=== PATIENT | female | born 2000 | race Two or more races ===

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

== ENCOUNTER 2022-03-17 14:19 | Emergency (ER) | payer OTHER, SELFPAY ==
--- NOTE | ~2022-03-17 | XR_ITS ---
EXAMINATION: XR CHEST CLINICAL INFORMATION: Chest pain. COMPARISON: Chest radiograph dated 06/09/2019. TECHNIQUE: 2 views of the chest were obtained. FINDINGS: No significant abnormality is noted involving the heart, lungs, mediastinum, bony thorax or soft tissues. XR/XR chest 2V IMPRESSION: No acute cardiopulmonary process.
[2022-03-17 14:21] VITALS: BP 151/82; PULSE 77; RESP 19; TEMP 36.6; O2SAT 98; BMI 40.7
--- NOTE | 2022-03-17 14:42 | ED_ITS ---
HPI - General Adult General Chief complaint: General Medical Stated complaint: chest pains Time Seen by Provider: 03/17/22 14:32 Source: patient Mode of arrival: ambulatory Limitations: no limitations History of Present Illness HPI narrative: Patient is a 21 year old female presenting to the emergency department today with upper chest pain. Patient states that she is having upper chest pain that only comes on and gets worse with a deep breath. Patient denies any dizziness, lightheadedness, abdominal pain, nausea, vomiting, fever, chills, blurry vision, double vision, loss of vision, difficulty breathing, shortness of breath, back pain, night sweats, pain with urination, increased urinary frequency, increased urinary urgency, blood in her urine or stool, syncope or a near syncopal episode, recent trauma or falls, bowel incontinence, bladder incontinence, bowel retention, bladder retention, or any other complaints at this time. Onset (ago): day(s) Location: chest Radiation: non-radiation Severity: mild Severity scale (1-10): 3 Quality: dull Pain Consistency: intermittent Relieving factors: none Exacerbating factors: other (inhalation) Associated symptoms: denies other symptoms Treatments prior to arrival: none Related Data Previous Rx's Medication Instructions Recorded penicillin V potassium 500 mg 500 mg PO BID 10 days #20 tabs 05/17/21 tablet omeprazole 20 mg capsule,delayed 20 mg PO DAILY #30 caps 10/31/21 release ondansetron 4 mg disintegrating 4 mg PO Q8H PRN nausea and 10/31/21 tablet vomiting #7 tabs Allergies Allergy/AdvReac Type Severity Reaction Status Date / Time No Known Allergies Allergy Verified 10/31/21 14:53 Review of Systems Constitutional: Constitutional: Reports no additional constitutional complaints, Denies chills, Denies fever(s) and Denies night sweats Eyes: Eyes: Reports no additional eye complaints, Denies blurry vision, Denies change in vision, Denies diplopia, Denies eye discharge, Denies loss of vision and Denies eye pain ENT: Denies dizziness Cardiovascular: Cardiovascular: Reports no additional cardiovascular complaints, Denies chest pain, Denies lightheadedness, Denies Loss of Consciousness and Denies dyspnea Respiratory: Respiratory: Reports no additional respiratory complaints and Denies dyspnea Gastrointestinal: Gastrointestinal: Reports no additional gastrointestinal complaints, Denies abdominal pain, Denies melena, Denies hematochezia, Denies change in bowel habits and Denies change in stool character Genitourinary: Genitourinary: Denies hematuria, Denies urinary frequency, Denies dysuria, Denies urinary incontinence, Denies urinary hesitancy and Denies urinary urgency Musculoskeletal: Musculoskeletal: Reports no additional musculoskeletal complaints, Denies numbness and Denies tingling Neurologic: Denies dizziness, Denies loss of vision, Denies numbness and Denies tingling Psychiatric: Psychiatric: Reports no additional psychiatric complaints Endocrine: Endocrine: Reports no additional endocrine complaints Hematologic/Lymphatic: Hematologic/Lymphatic: Reports no additional hematologic/lymphatic complaints Allergic/Immunologic: Allergic/Immunologic: Reports no additional allergic/immunologic complaints [facility] Past Medical History Attestation statement: The following information was validated with the patient. Medical History Lab test positive for detection of COVID-19 virus Social History Social History Advance Directives: No Advance Directives Information Provided: No Physical Exam ED Vital Signs: Vital Signs - 24 hr 03/17/22 14:21 Temperature 98 F Pulse Rate 77 Respiratory Rate 19 Blood Pressure 151/82 H Pulse Oximetry 98 Oxygen Delivery Method Room Air BMI result Body Mass Index 40.7 Const General: cooperative, no acute distress, alert and awake Nutritional Appearance: well nourished Orientation/consciousness: patient oriented x3 Limitations: no limitations HENMT Head: Yes normal to inspection and Yes atraumatic Ears: hearing grossly normal bilaterally and external ears normal General nose exam: Normal external nose present, no nasal discharge noted and no epistaxis Face and sinus: Yes normal facial exam, No abrasion and No laceration Mouth: Normal oral and palatal mucosa present, no drooling and no muffled voice Eyes General: appearance normal, both eyes and all related structures Periorbital: periorbital findings normal Eyelids: Yes eyelids normal Conjunctivae: conjunctivae normal Pupils: Equal, round and reactive pupils present EOM: EOMs intact bilaterally Neck Neck: Yes normal visual inspection, Yes full ROM and Yes no lymphadenopathy Chest Chest palpation & inspection: normal inspection of the chest Resp Effort & Inspection: normal respiratory effort and able to speak in complete sentences Auscultation: clear to auscultation bilaterally Cardio Rate: regular rate Rhythm: regular rhythm GI Inspection: Yes normal to inspection Neuro General: patient oriented x3 and moves all extremities Cranial nerves: Yes Equal, round and reactive pupils present Cognition (Neuro): normal cognition Motor exam (neuro): 5/5 motor strength present throughout Sensory Exam: Normal double simultaneous stimulation for sensation Coordination: [id number] test normal Extrem General: Yes normal to inspection, Yes full ROM and Yes capillary refill normal Psych Appearance: grossly normal Mental Status: mental status grossly normal Affect: normal affect Attitude: cooperative Thought process: Normal thought process present Thought content: Normal thought content present Insight: Good insight present (Psych) Medical Decision Making MDM Narrative Medical decision making narrative: Patient is a 21 year old female presenting to the emergency department today with chest wall pain. Patient's physical exam was unremarkable. Patient's EKG was unremarkable. Patient's chest x-ray showed no acute process. I explained my physical exam findings as well as all test results to the patient. I answered all questions asked by the patient. Patient received IM toradol which she stated helped her symptoms significantly. I stressed the importance of the patient taking her medication as prescribed. I stressed the importance of the patient following up with her primary care provider. I stressed the importance of the patient returning to the emergency department immediately if her symptoms were to worsen or if she were to develop any dizziness, shortness of breath, difficulty breathing, chest pain, blurry vision, loss of vision, nausea, vomiting, abdominal pain, fever, chills, back pain, or any other complaints. Patient verbalized agreement and understanding with this treatment plan and discharge. Differential Diagnosis Differential Diagnosis: chest wall pain, costochondritis, chest wall pain Medical Records Medical records reviewed: Yes I reviewed the patient's medical records. Lab Data Labs: Lab Results 03/17/22 Range/Units 15:23 Urine Test NEGATIVE (NEGATIVE) Imaging Data Chest x-ray: Attestation: I personally reviewed and interpreted this imaging study as follows: My impression: No acute process. Radiologist's impression: EXAMINATION: XR CHEST CLINICAL INFORMATION: Chest pain. COMPARISON: Chest radiograph dated 06/09/2019. TECHNIQUE: 2 views of the chest were obtained. FINDINGS: No significant abnormality is noted involving the heart, lungs, mediastinum, bony thorax or soft tissues. XR/XR chest 2V IMPRESSION: No acute cardiopulmonary process. Dictated By: Harvey Rao MD Signed By: Electronically signed by Harvey Rao MD 03/17/22 2869 ECG Data Attestation: I personally reviewed and interpreted this ECG as follows: Prior ECG tracings: not available for review Interpretation: Vent rate: 68bpm NH interval: 142ms QRS duration: 78ms QT/QTc-Baz 414/440ms P-R-T axes: 22 31 25 Normal sinus rhythm No previous Discharge Plan Discharge Clinical Impression: Acute costochondritis Patient Disposition: Home, Self-Care Instructions: Costochondritis (ED) Additional Instructions: Follow up with your primary care provider. Return to the emergency department immediately if your symptoms worsen or if you develop any dizziness, shortness of breath, difficulty breathing, chest pain, blurry vision, loss of vision, nausea, vomiting, abdominal pain, fever, chills, back pain, or any other complaints. Prescriptions: No Action omeprazole 20 mg capsule,delayed release(DR/EC) 20 mg PO DAILY Qty: 30 0RF ondansetron 4 mg tablet,disintegrating 4 mg PO Q8H PRN (Reason: nausea and vomiting) Qty: 7 0RF penicillin V potassium 500 mg tablet 500 mg PO BID 10 Days Qty: 20 0RF Interventions: ED Discharge Assessment Last Done: 03/17/22 15:45 Discharge Date/Time: 03/17/22 15:46 Print Language: Wolof
[2022-03-17 15:35] LABS: Urine Pregnancy NEGATIVE (NEGATIVE)
[2022-03-17 15:36] LABS: UPreg QC Valid YES
[2022-03-17] MEDS: Ketorolac Tromethamine 15 MG/ML VIAL IM (15:41)
== END 2022-03-17 15:46 | disposition home or self-care (01) ==
PROVIDERS: Emergency Provider Emergency Medicine Emergency Medical Services; PCP Physician Assistant
DX: M94.0 Chondrocostal junction syndrome [Tietze] (principal); R07.89 Other chest pain; Z79.899 Other long term (current) drug therapy
CPT/HCPCS: 71046; 81025; 96372; 99284; J1885

== ENCOUNTER 2022-03-31 10:21 | Outpatient (REF) | payer OTHER, SELFPAY ==
[2022-03-31 12:06] LABS: HCG Quantitative < 2 mIU/mL; TSH reflex Free T4 0.75 uIU/mL (0.32-4.0)
[2022-04-01 11:35] LABS: H Pylori Breath Test Negative (Negative)
[2022-04-03 21:51] LABS: Transglutaminase Ab IgG <1.0 U/mL; Transglutaminase IgA <1.0 U/mL
[2022-04-04 16:42] LABS: Vitamin D 25-OH, D2 <4 ng/mL; Vitamin D 25-OH, D3 18 ng/mL; Vitamin D 25-OH, Total 18 ng/mL (30-100)
== END 2022-03-31 10:22 | disposition home or self-care (01) ==
LOC: HO.LAB 10:21
PROVIDERS: PCP Physician Assistant; Visit Provider Nurse Practitioner Family
DX: R10.9 Unspecified abdominal pain (principal); E55.9 Vitamin D deficiency, unspecified; R11.2 Nausea with vomiting, unspecified; R14.0 Abdominal distension (gaseous); K21.9 Gastro-esophageal reflux disease without esophagitis
CPT/HCPCS: 36415; 82306; 83013; 84443; 84702; 86364; 99202

== ENCOUNTER 2023-03-09 17:10 | Emergency (ER) | payer OTHER, SELFPAY ==
--- NOTE | ~2023-03-09 | US_ITS ---
EXAMINATION: US OBSTETRICAL ULTRASOUND CLINICAL INFORMATION: Nausea/vomiting/diarrhea. COMPARISON: None available. LMP: 01/22/2023. Gestational age by maternal dates is 6 weeks and 4 days. Estimated date of delivery by maternal dates is 10/29/2023. TECHNIQUE: Ultrasound of the maternal pelvis is performed using transabdominal and transvaginal transducers. Transvaginal imaging is performed due to inadequate visualization transabdominally. M-mode Doppler is also performed. FINDINGS: There is a single intrauterine gestational sac with visible yolk sac, embryo/fetus, and cardiac activity. There is no significant subchorionic hemorrhage or hematoma. HR: 138 beats per minute. CRL (crown rump length): 0.57 cm (6 weeks and 3 days +/- 4 days). STEFFANY (estimated date of delivery): 10/30/2023 +/- 4 days. MATERNAL ADNEXA: The right maternal ovary measures 3.2 x 2.1 x 2.5 cm. There is a 2 cm corpus luteal cyst in the right ovary. The left maternal ovary measures 2.1 x 1.2 x 1.9 cm. There is no significant maternal adnexal mass. No maternal pelvic ascites. US/US OB <= 14 weeks fetus IMPRESSION: Single live intrauterine gestation with a sonographic age of 6 weeks and 3 days, STEFFANY 10/30/2023. No acute sonographic abnormality.
--- NOTE | 2023-03-09 17:30 | ED_ITS ---
HPI - Abdominal Pain General Chief Complaint: Nausea/Vomiting/Diarrhea Stated Complaint: Vomiting/Preg Time Seen by Provider: 03/09/23 19:12 Source: patient and RN notes reviewed Mode of arrival: ambulatory Limitations: no limitations History of Present Illness HPI narrative: This is a 22-year-old female , presenting to the emergency department for evaluation of nausea and lower abdominal cramping for the last week. Patient reports that she took a home test and this was positive. She reports that over last 2 days she has been unable to keep fluids or food down. She called her OBGYN who be seeing her in the coming weeks. She has not had an ultrasound as of yet. Denies any pain with urination, urinary frequency, urgency, fevers, chills, vaginal discharge or bleeding. No other complaints or concerns at this time. MD elicited complaint: abdominal pain Pertinent past history: none Pain Consistency: constant Location: none Quality: cramping Radiation: back Migration to: no migration Exacerbating factors: nothing Relieving factors: nothing Associated symptoms: denies other symptoms Related Data Previous Rx's Medication Instructions Recorded PNV-iron 29 mg-folic acid 1 1 pkg PO DAILY #60 ea 03/08/23 mg-omega3 250 mg-dha 200mg oral combo pack Allergies Allergy/AdvReac Type Severity Reaction Status Date / Time No Known Allergies Allergy Verified 03/08/23 12:46 Review of Systems Review of Systems Constitutional: No Weight loss, No Fever, No Chills, No Night Sweats, No Fatigue, No Malaise ENT/Mouth: No Hearing loss, No Ear Pain, No Nasal Congestion, No Sinus Pain, No Hoarseness, No sore throat, No Rhinorrhea, No Swallowing Difficulty Eyes: No Eye Pain, No Swelling, No Redness, No Foreign Body, No Discharge, No Vision Changes Cardiovascular: No Chest Pain, No SOB, No Dyspnea on Exertion, No Orthopnea, No Edema, No Palpitations Respiratory: No Cough, No Sputum, No Wheezing, No Smoke Exposure, No Dyspnea Gastrointestinal: No Nausea, No Vomiting, No Diarrhea, No Constipation, + Abdominal pain, No Hematochezia, No Melena Genitourinary: No irregular bleeding, No Dysuria, No Urinary Frequency, No Hematuria, No Urinary Incontinence/retention, No Urgency, No Flank Pain, No Urinary Flow Changes, No Hesitancy Musculoskeletal: No joint pain, No Myalgias, No Joint Swelling Skin: No Skin Lesions, No rash Neuro: No Weakness, No Numbness, No Paresthesias, No Loss of Consciousness, No Dizziness, No Headache Psych: No Anxiety/Panic, No Depression, No SI/HI/AH/VH, No Social Issues, Heme/Lymph: No Bruising, No Bleeding,No Lymphadenopathy Endocrine: No Polyuria, No Polydipsia, No Temperature Intolerance Yes all other systems are reviewed and are negative Constitutional: Reports as per [facility] Past Medical History Medical History Lab test positive for detection of COVID-19 virus Surgical History No pertinent past surgical history Family History Family History (Updated 03/08/23 @ 13:03 by STEFANY Wells) Father Depression Mother HTN (hypertension) Social History Social History (Updated 03/08/23 @ 13:04 by STEFANY Wells) Household Members: Significant Other Housing: Apartment Alcohol intake: current Alcohol intake frequency: other Patient Tobacco Use Status: Never used Tobacco Tobacco use type: Cigarette e-Cigarette/Vaping Use: Never Used Substance Use Type: Marijuana Advance Directives: No Advance Directives Information Provided: No service: No Current occupational status: employed Cognitive needs: No Hearing needs: No Vision needs: No Physical Exam ED Vital Signs: Vital Signs - 24 hr 03/09/23 17:31 03/09/23 21:32 Temperature 98.4 F 98.2 F Pulse Rate 72 72 Respiratory Rate 18 14 Blood Pressure 141/75 H 104/57 L Pulse Oximetry 100 100 Oxygen Delivery Method Room Air Room Air BMI result Body Mass Index 27.6 Const General: cooperative, comfortable and no acute distress Orientation/consciousness: patient oriented x3 Limitations: no limitations HENMT Head: Yes normal to inspection, Yes normocephalic and Yes atraumatic Ears: hearing grossly normal bilaterally General nose exam: Normal external nose present Face and sinus: Yes normal facial exam Mouth: Normal oral and palatal mucosa present, oropharynx normal and moist mucous membranes Throat: Yes posterior oropharynx normal Eyes General: appearance normal, both eyes and all related structures Eyelids: Yes eyelids normal Conjunctivae: conjunctivae normal Sclerae: sclerae normal Pupils: Equal, round and reactive pupils present EOM: EOMs intact bilaterally Neck Neck: Yes normal visual inspection, Yes full ROM and Yes no lymphadenopathy Lymphatic: no lymphadenopathy noted Chest Chest palpation & inspection: normal inspection of the chest Resp Effort & Inspection: normal respiratory effort and able to speak in complete sentences Auscultation: clear to auscultation bilaterally, no crackles, no rales, no rhonchi and no wheezes Cardio Rate: regular rate Rhythm: regular rhythm Heart sounds: S1 normal heart sound present and S2 normal heart sound present GI Other: Mild suprapubic tenderness to palpation, no rebound or guarding. Abdomen is s oft Inspection: Yes normal to inspection Skin General skin exam: no rashes or lesions noted Trauma: no lacerations or abrasions Wounds: no wounds Neuro General: patient oriented x3 and moves all extremities Cranial nerves: Yes Equal, round and reactive pupils present Extrem General: Yes normal to inspection Right upper extremity: normal to inspection Left upper extremity: normal to inspection Right lower extremity: normal to inspection Left lower extremity: normal to inspection Course Course Course Narrative: This is a rapid medical exam. Deferred additional HPI, ROS, PE to primary provider. 22yo female previously healthy here with complaints of vomiting, lower abdominal pain x 2 weeks. Patient found out a few days ago she was . LMP 5/1-5/6 Has not had US to confirm IUP, has not seen OB Will check labs, UA VSS Reevaluation(s) Reevaluation #1: IUP confirmed, patient re-evaluated in feeling much better. P.o. trial and patient is able to eat and drink without any nausea or vomiting. Discussed with patient the importance of following up with OBGYN. Advised that patient can take [id number] Unisom and should be taking a vitamin. Patient understands and agrees with plan, patient stable for discharge Medical Decision Making Medical Decision Making MDM Narrative: This is a 22-year-old female presenting to the emergency department for evaluation nausea and vomiting. She just found out that she was several days ago has not been seen by OBGYN. On examination patient has mild suprapubic tenderness. Given patient has not had an ultrasound to confirm intrauterine , will obtain ultrasound, labs. Patient unable to tolerate p.o. will medicate with IV fluids and 1 time dose of Zofran. Patient is afebrile, mildly hypertensive. All other vital signs stable. Differential Diagnosis Differential Diagnoses: The differential diagnosis associated with the presentat ion includes , gastritis, gastroenteritis hyperemesis gravidarum Admission/Observation Consideration of admission/observation: Escalation of care including admission/observation considered Lab Data MDM Lab Attestation statement: I reviewed the patient's lab results. 03/09/23 17:42 03/09/23 17:42 Labs: Lab Results 03/09/23 03/09/23 03/09/23 Range/Units 17:42 17:42 17:42 WBC 9.5 (4.8-10.8) X10*3/uL RBC 3.97 L (4.20-5.50) X10*6/uL Hgb 12.1 (12.0-16.0) g/dl Hct 35.0 L (37.0-47.0) % MCV 88.2 (80.0-98.0) fL MCH 30.5 (27.0-33.0) pg MCHC 34.6 (31.0-35.0) g/dl RDW 12.8 (11.0-16.0) % Plt Count 297 (160-400) X10*3/uL MPV 9.8 (9.4-12.3) fL Immature Gran % (Auto) 0.4 (0.0-0.4) % Neut % (Auto) 70.4 (45-73) % Lymph % (Auto) 22.5 (20-40) % [place] % (Auto) 5.9 (2-11) % Eos % (Auto) 0.4 (0-4) % Baso % (Auto) 0.4 (0-2) % Lymph # (Auto) 2.1 (1.2-4.9) X10*3/uL [place] # (Auto) 0.6 (0.1-1.2) X10*3/uL Eos # (Auto) 0.0 (0.0-0.4) X10*3/uL Baso # (Auto) 0.0 (0.0-0.2) X10*3/uL Abs Immat Gran (auto) 0.04 H (0.00-0.03) X10*3/uL Absolute Neuts (auto) 6.6 (2.0-8.3) x10*3/uL Absolute Nucleated RBC 0.000 (0.0-0.012) X10*3/uL Nucleated RBC % (auto) 0.0 (0.0-0.2) /100WBC Sodium 136 (135-145) mmol/L Potassium 3.6 (3.3-5.1) mmol/L Chloride 106 (96-108) mmol/L Carbon Dioxide 21 L (22-29) mmol/L Anion Gap 13 (12-20) BUN 7 L (9-16) mg/dL Creatinine 0.60 (0.5-1.4) mg/dL Estim Creat Clear Calc 151.8 Estimated GFR > 60 Random Glucose 82 (60-115) mg/dL Calcium 9.6 (8.4-10.2) mg/dL Total Bilirubin 1.0 (0.0-1.0) mg/dL Direct Bilirubin 0.3 (0.0-0.5) mg/dL AST 12 (5-31) U/L ALT 8 (0-31) U/L Alkaline Phosphatase 34 L (39-117) U/L Total Protein 7.5 (6.5-8.0) g/dL Albumin 4.1 (3.5-5.0) g/dL Beta HCG, Quant 04426 mIU/mL Urine Color Urine Appearance Urine pH (5.0-9.0) Ur Specific [place] (1.005-1.025) Urine Protein (Neg-Trace) mg/dL Urine Glucose (UA) (Negative) mg/dL Urine Ketones (Negative) mg/dL Urine Blood (Negative) Urine Nitrite (Negative) Ur Leukocyte Esterase (Negative) Urine RBC (0-2) /HPF Urine WBC (0-5) /HPF Ur Squamous Epith Cells (0-2) /HPF Urine Bacteria (None Seen) Hyaline Casts (0-2) /LPF Urine Test (NEGATIVE) 03/09/23 03/09/23 Range/Units 17:46 17:46 WBC (4.8-10.8) X10*3/uL RBC (4.20-5.50) X10*6/uL Hgb (12.0-16.0) g/dl Hct (37.0-47.0) % MCV (80.0-98.0) fL MCH (27.0-33.0) pg MCHC (31.0-35.0) g/dl RDW (11.0-16.0) % Plt Count (160-400) X10*3/uL MPV (9.4-12.3) fL Immature Gran % (Auto) (0.0-0.4) % Neut % (Auto) (45-73) % Lymph % (Auto) (20-40) % [place] % (Auto) (2-11) % Eos % (Auto) (0-4) % Baso % (Auto) (0-2) % Lymph # (Auto) (1.2-4.9) X10*3/uL [place] # (Auto) (0.1-1.2) X10*3/uL Eos # (Auto) (0.0-0.4) X10*3/uL Baso # (Auto) (0.0-0.2) X10*3/uL Abs Immat Gran (auto) (0.00-0.03) X10*3/uL Absolute Neuts (auto) (2.0-8.3) x10*3/uL Absolute Nucleated RBC (0.0-0.012) X10*3/uL Nucleated RBC % (auto) (0.0-0.2) /100WBC Sodium (135-145) mmol/L Potassium (3.3-5.1) mmol/L Chloride (96-108) mmol/L Carbon Dioxide (22-29) mmol/L Anion Gap (12-20) BUN (9-16) mg/dL Creatinine (0.5-1.4) mg/dL Estim Creat Clear Calc Estimated GFR Random Glucose (60-115) mg/dL Calcium (8.4-10.2) mg/dL Total Bilirubin (0.0-1.0) mg/dL Direct Bilirubin (0.0-0.5) mg/dL AST (5-31) U/L ALT (0-31) U/L Alkaline Phosphatase (39-117) U/L Total Protein (6.5-8.0) g/dL Albumin (3.5-5.0) g/dL Beta HCG, Quant mIU/mL Urine Color Yellow Urine Appearance Clear Urine pH 7.0 (5.0-9.0) Ur Specific [place] 1.020 (1.005-1.025) Urine Protein Negative (Neg-Trace) mg/dL Urine Glucose (UA) Negative (Negative) mg/dL Urine Ketones 15 (Negative) mg/dL Urine Blood Negative (Negative) Urine Nitrite Negative (Negative) Ur Leukocyte Esterase Trace H (Negative) Urine RBC 0-2 (0-2) /HPF Urine WBC 0-5 (0-5) /HPF Ur Squamous Epith Cells 6-10 (0-2) /HPF Urine Bacteria Trace (None Seen) Hyaline Casts 0-2 (0-2) /LPF Urine Test POSITIVE H (NEGATIVE) Radiology Impression Discussion of test interpretation with radiology: I have reviewed the radiologist's reading. External Record Review External record reviewed: Inpatient record, Office record, Outpatient record, Prior outpatient labs, Prior outpatient radiology, Primary care record and Outside ED record Medications Administered Discontinued Medications Generic Name Dose Route Start Last Admin Trade Name Debbie PRN Reason Stop Dose Admin Sodium Chloride 1,000 mls @ 999 mls/hr 03/09/23 19:59 03/09/23 21:34 Ns IVCONT 03/09/23 20:59 Infused .Q1H1M ONE Infusion Ondansetron HCl 4 mg 03/09/23 19:59 03/09/23 20:09 Ondansetron Hcl 4 Mg/2 Ml Vial IVPUSH 03/09/23 20:00 4 mg ONCE ONE Administration Discharge Plan Discharge Clinical Impression: , Nausea and vomiting during Patient Disposition: Home, Self-Care Instructions: Nausea and Vomiting in (ED), (ED), Acute Nausea and Vomiting (ED) Additional Instructions: Your ultrasound showed a single live intrauterine gestation with a AHI of 6 weeks and 3 days, estimated delivery date 10/30/2023. Please drink plenty of fluids get plenty of rest. You can try to take [id number] Unisom to help alleviate some nausea or vomiting. Any new or worsening symptoms occur including worsening abdominal pain unable to tolerate food or liquid please return for re-evaluation. It is critical that you follow-up with your OBGYN. Please take v itamins. Prescriptions: No Action PNV cmb 60-[id number]-RD-omega-3-dha [id number] mg combo pack 1 pkg PO DAILY Qty: 60 0RF Interventions: ED Discharge Assessment Last Done: 03/09/23 22:49 Discharge Date/Time: 03/09/23 22:50
[2023-03-09 17:31] VITALS: BP 141/75; PULSE 72; RESP 18; TEMP 36.9; O2SAT 100; BMI 27.6
[2023-03-09 17:58] LABS: MANUAL DIFF FLAG NO
[2023-03-09 18:02] LABS: Appearance Urine Clear; Color Urine Yellow; Glucose Urine UA Negative (Negative); Leukocyte Esterase Urine Trace (Negative); Nitrite Urine Negative (Negative); UMIC TRIGGER UACC YES; Urine Blood Negative (Negative); Urine Ketones 15 mg/dL (Negative); Urine Protein Negative (Neg-Trace)
[2023-03-09 18:03] LABS: UPreg QC Valid YES; Urine Pregnancy POSITIVE (NEGATIVE)
[2023-03-09 18:04] LABS: Bacteria Urine Trace (None Seen); Hyaline Casts Urine 0-2 /LPF (0-2); RBC Urine 0-2 /HPF (0-2); WBC Urine 0-5 /HPF (0-5)
[2023-03-09 18:24] LABS: Basophils Percent Auto 0.4 % (0-2); Eosinophils Percent Auto 0.4 % (0-4); Hemoglobin 12.1 g/dl (12.0-16.0); Imm Gran Abs Auto 0.04 X10*3/uL (0.00-0.03); Imm Gran Pct Auto 0.4 % (0.0-0.4); Lymphocytes Absolute Auto 2.1 X10*3/uL (1.2-4.9); Lymphocytes Percent Auto 22.5 % (20-40); Mean Corpuscular HGB Conc 34.6 g/dl (31.0-35.0); Mean Corpuscular Hemoglobin 30.5 pg (27.0-33.0); Mean Corpuscular Volume 88.2 fL (80.0-98.0); Mean Platelet Volume 9.8 fL (9.4-12.3); Monocytes Absolute Auto 0.6 X10*3/uL (0.1-1.2); Monocytes Percent Auto 5.9 % (2-11); Neutrophils Absolute Auto 6.6 x10*3/uL (2.0-8.3); Neutrophils Percent Auto 70.4 % (45-73); Platelet Count 297 X10*3/uL (160-400); Red Blood Count 3.97 X10*6/uL (4.20-5.50); Red Cell Distribution Width 12.8 % (11.0-16.0); White Blood Count 9.5 X10*3/uL (4.8-10.8)
[2023-03-09 18:26] LABS: Alanine Aminotransferase 8 U/L (0-31); Albumin Level 4.1 g/dL (3.5-5.0); Alkaline Phosphatase 34 U/L (39-117); Anion Gap 13 (12-20); Aspartate Amino Transferase 12 U/L (5-31); Bilirubin Direct 0.3 mg/dL (0.0-0.5); Blood Urea Nitrogen 7 mg/dL (9-16); Calcium 9.6 mg/dL (8.4-10.2); Carbon Dioxide 21 mmol/L (22-29); Chloride 106 mmol/L (96-108); Creatinine Clr Calc Pharmacy 151.8; Estimated Glomerular Filt Rate > 60; Glucose Random 82 mg/dL (60-115); Potassium 3.6 mmol/L (3.3-5.1); Sodium 136 mmol/L (135-145); Total Protein 7.5 g/dL (6.5-8.0)
[2023-03-09 18:49] LABS: HCG Quantitative 68430 mIU/mL
[2023-03-09] MEDS: ondansetron HCL 4 MG/2 ML VIAL IVPUSH (20:09)
[2023-03-09] MEDS: 0.9 % Sodium Chloride 1,000 ML 999 ML IVCONT (20:09)
--- NOTE | 2023-03-09 20:14 | PC.NURSE ---
this rn placed 20g IV in R Ac. pt tolerated well. pt medicated according to mar. IVF infusing. pt partner at bedside.
[2023-03-09 21:32] VITALS: BP 104/57; PULSE 72; RESP 14; TEMP 36.8; O2SAT 100
--- NOTE | 2023-03-09 22:47 | PC.NURSE ---
pt calm and cooperative. pt ambulatory at discharge. pt denies nausea at this time. iv removed at time of discharge. pt provided with discharge packet. pt verbalized understanding of discharge plan
== END 2023-03-09 22:50 | disposition home or self-care (01) ==
PROVIDERS: Nurse Practitioner Family; Emergency Provider Student in an Organized Health Care Education/Training Program
DX: O21.0 Mild hyperemesis gravidarum (principal); Z3A.01 Less than 8 weeks gestation of pregnancy; Z79.899 Other long term (current) drug therapy
CPT/HCPCS: 36415; 76801; 80048; 80076; 81001; 81025; 84702; 85025; 96361; 96374; 99284; J2405

== ENCOUNTER → 2023-03-13 14:40 | Outpatient (BNVA) | payer OTHER, SELFPAY | PROVIDERS: PCP Nurse Practitioner Family; Visit Provider Advanced Practice Midwife | DX: Z34.90 Encounter for supervision of normal pregnancy, unspecified, unspecified trimester (principal) | CPT/HCPCS: 99202 ==

== ENCOUNTER → 2023-03-30 13:48 | Outpatient (BNVA) | payer OTHER, SELFPAY | PROVIDERS: PCP Nurse Practitioner Family; Visit Provider Advanced Practice Midwife | DX: O9A.311 Physical abuse complicating pregnancy, first trimester (principal); Z3A.12 12 weeks gestation of pregnancy | CPT/HCPCS: 99212 ==

== ENCOUNTER 2023-04-03 11:49 | Outpatient (REF) | payer OTHER, SELFPAY ==
[2023-04-03 13:29] LABS: Hematocrit 35.3 % (37.0-47.0); Hemoglobin 12.1 g/dl (12.0-16.0); Mean Corpuscular HGB Conc 34.3 g/dl (31.0-35.0); Mean Corpuscular Hemoglobin 30.2 pg (27.0-33.0); Mean Platelet Volume 9.1 fL (9.4-12.3); Platelet Count 268 X10*3/uL (160-400); Red Blood Count 4.01 X10*6/uL (4.20-5.50); Red Cell Distribution Width 13.1 % (11.0-16.0); White Blood Count 7.7 X10*3/uL (4.8-10.8)
[2023-04-03 14:10] LABS: Alanine Aminotransferase 12 U/L (0-31); Aspartate Amino Transferase 16 U/L (5-31); Blood Urea Nitrogen 10 mg/dL (9-16); Estimated Glomerular Filt Rate > 60; Glucose 1 Hour PP 50gm Dose 53 mg/dL (60-140); Uric Acid 3.2 mg/dL (2.4-5.7)
[2023-04-03 14:16] LABS: Amphetamine Screen Urine Not Detected (Not Detect); Barbiturates, Urine Not Detected (Not Detect); Benzodiazepines Screen Urine Not Detected (Not Detect); Cannabinoid Screen Urine POSITIVE (Not Detect); Cocaine Screen Urine Not Detected (Not Detect); Fentanyl, urine Not Detected (Not Detect); Opiate Screen Urine Not Detected (Not Detect); Phencyclidine Screen Urine Not Detected (Not Detect)
[2023-04-04 02:25] LABS: Syphilis Screen Nonreactive (Nonreactive)
[2023-04-04 03:11] LABS: HBsAGNum1 0.29 S/CO (0.00-0.99); HIV AB/AG Nonreactive (Nonreactive); HIV Num 1 0.06 S/CO (0.00-0.99); Hepatitis B Surface Antigen Negative (Negative); ~Hepatitis C Antibody Nonreactive (Nonreactive)
== END 2023-04-03 11:50 | disposition home or self-care (01) ==
LOC: HO.LAB 11:49
PROVIDERS: Visit Provider Advanced Practice Midwife
DX: Z34.91 Encounter for supervision of normal pregnancy, unspecified, first trimester (principal)
CPT/HCPCS: 80307; 82565; 82950; 84450; 84460; 84520; 84550; 85027; 86762; 86780; 86787; 86803; 86850; 86900; 87086; 87340; 87389

== ENCOUNTER 2023-05-01 10:25 | Outpatient (REF) | payer OTHER, SELFPAY ==
[2023-05-01 17:59] LABS: CT PCR NOT DETECTED (Not Detect.); NG PCR NOT DETECTED (Not Detect.)
[2023-05-02 12:48] LABS: BV Int Neg Control Negative (Negative); BV Int Pos Control Positive (Positive)
== END 2023-05-01 10:26 | disposition home or self-care (01) ==
LOC: HO.LNP 10:25
PROVIDERS: PCP Nurse Practitioner Family; Visit Provider Advanced Practice Midwife
DX: Z34.91 Encounter for supervision of normal pregnancy, unspecified, first trimester (principal); Z79.899 Other long term (current) drug therapy
CPT/HCPCS: 0353U; 81003; 87480; 87510; 87660; 99212

== ENCOUNTER 2023-05-01 10:25 | Outpatient (AMB) | payer OTHER, SELFPAY ==
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
[2023-05-01 11:36] VITALS: BP 120/70; BMI 29.3
== END 2023-05-01 13:04 | disposition home or self-care (01) ==
LOC: HO.HWS 10:25
PROVIDERS: PCP Nurse Practitioner Family; Visit Provider Advanced Practice Midwife
DX: Z34.91 Encounter for supervision of normal pregnancy, unspecified, first trimester (principal); Z34.90 Encounter for supervision of normal pregnancy, unspecified, unspecified trimester
CPT/HCPCS: 25942

== ENCOUNTER 2023-06-01 12:31 | Outpatient (AMB) | payer OTHER, SELFPAY ==
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
[2023-06-01 12:46] VITALS: BP 110/58; BMI 32.4
== END 2023-06-01 13:15 | disposition home or self-care (01) ==
PROVIDERS: PCP Nurse Practitioner Family; Visit Provider Advanced Practice Midwife
DX: Z34.92 Encounter for supervision of normal pregnancy, unspecified, second trimester (principal)
CPT/HCPCS: 25942

== ENCOUNTER → 2023-06-01 12:31 | Outpatient (BNVA) | payer OTHER, SELFPAY | PROVIDERS: PCP Nurse Practitioner Family; Visit Provider Advanced Practice Midwife | DX: Z34.92 Encounter for supervision of normal pregnancy, unspecified, second trimester (principal) | CPT/HCPCS: 99212 ==

== ENCOUNTER 2023-06-20 14:01 | Outpatient (AMB) | payer OTHER, SELFPAY ==
[2023-06-20 14:09] VITALS: BP 112/60; BMI 33.8
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
== END 2023-06-20 15:00 | disposition home or self-care (01) ==
PROVIDERS: PCP Nurse Practitioner Family; Visit Provider Advanced Practice Midwife
DX: Z34.92 Encounter for supervision of normal pregnancy, unspecified, second trimester (principal)
CPT/HCPCS: 25942

== ENCOUNTER → 2023-06-20 14:01 | Outpatient (BNVA) | payer OTHER, SELFPAY | PROVIDERS: PCP Nurse Practitioner Family; Visit Provider Advanced Practice Midwife | DX: O98.512 Other viral diseases complicating pregnancy, second trimester (principal); U07.1 COVID-19; O99.322 Drug use complicating pregnancy, second trimester; F12.20 Cannabis dependence, uncomplicated; Z3A.21 21 weeks gestation of pregnancy; Z67.11 Type A blood, Rh negative; Z83.3 Family history of diabetes mellitus | CPT/HCPCS: 81003; 99212 ==

== ENCOUNTER → 2023-07-04 11:06 | Outpatient (BNV) | payer OTHER, SELFPAY ==
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
== END ==
PROVIDERS: PCP Nurse Practitioner Family; Visit Provider Nurse Practitioner Family
DX: Z28.9 Immunization not carried out for unspecified reason (principal); Z34.90 Encounter for supervision of normal pregnancy, unspecified, unspecified trimester; K21.9 Gastro-esophageal reflux disease without esophagitis
CPT/HCPCS: 99204

== ENCOUNTER 2023-07-19 14:04 | Outpatient (AMB) | payer OTHER, SELFPAY ==
[2023-07-19 14:20] VITALS: BP 102/66; BMI 35.9
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
== END 2023-07-19 15:20 | disposition home or self-care (01) ==
PROVIDERS: PCP Nurse Practitioner Family; Visit Provider Advanced Practice Midwife
DX: Z34.92 Encounter for supervision of normal pregnancy, unspecified, second trimester (principal); O26.899 Other specified pregnancy related conditions, unspecified trimester; N89.8 Other specified noninflammatory disorders of vagina
CPT/HCPCS: 25942

== ENCOUNTER 2023-07-19 14:04 | Outpatient (REF) | payer OTHER, SELFPAY ==
[2023-07-20 05:10] LABS: CT PCR NOT DETECTED (Not Detect.); NG PCR NOT DETECTED (Not Detect.)
[2023-07-20 14:11] LABS: BV Int Neg Control Negative (Negative); BV Int Pos Control Positive (Positive)
== END 2023-07-19 14:05 | disposition home or self-care (01) ==
LOC: HO.LAB 14:04
PROVIDERS: PCP Nurse Practitioner Family; Visit Provider Advanced Practice Midwife
DX: O26.892 Other specified pregnancy related conditions, second trimester (principal); O99.212 Obesity complicating pregnancy, second trimester; N89.8 Other specified noninflammatory disorders of vagina; E66.9 Obesity, unspecified; Z3A.25 25 weeks gestation of pregnancy; Z20.2 Contact with and (suspected) exposure to infections with a predominantly sexual mode of transmission
CPT/HCPCS: 0353U; 81003; 87480; 87510; 87660; 99212

== ENCOUNTER 2023-07-19 15:28 | Outpatient (REF) | payer OTHER, SELFPAY | END 2023-07-19 15:29 | disposition home or self-care (01) | LOC: HO.LNP 15:28 | PROVIDERS: Visit Provider Advanced Practice Midwife | DX: Z13.89 Encounter for screening for other disorder (principal) ==

== ENCOUNTER 2023-07-27 13:35 | Emergency (ER) | payer OTHER, SELFPAY ==
--- NOTE | 2023-07-27 | ECG_ITS ---
Test Reason : CHEST PAIN Blood Pressure : / mmHG Vent. Rate : 079 BPM Atrial Rate : 079 BPM P-R Int : 146 ms QRS Dur : 076 ms QT Int : 382 ms P-R-T Axes : 016 034 023 degrees QTc Int : 438 ms Normal sinus rhythm Low voltage QRS RSR' or QR pattern in V1 suggests right ventricular conduction delay Borderline ECG When compared with ECG of 09-JUN-2019 22:24, Possible lead placement change precordial leads Referred By: Generic ED Physician Electronically Signed By:DANIELA CALERO MD
[2023-07-27 13:39] VITALS: BP 113/62; PULSE 81; RESP 18; TEMP 36.8; O2SAT 100; BMI 29.0
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
[2023-07-27 13:59] LABS: MANUAL DIFF FLAG NO
[2023-07-27 14:03] LABS: Basophils Percent Auto 0.4 % (0-2); Eosinophils Absolute Auto 0.2 X10*3/uL (0.0-0.4); Eosinophils Percent Auto 1.9 % (0-4); Hematocrit 32.5 % (37.0-47.0); Imm Gran Abs Auto 0.07 X10*3/uL (0.00-0.03); Imm Gran Pct Auto 0.9 % (0.0-0.4); Lymphocytes Absolute Auto 1.6 X10*3/uL (1.2-4.9); Lymphocytes Percent Auto 19.6 % (20-40); Mean Corpuscular HGB Conc 33.8 g/dl (31.0-35.0); Mean Corpuscular Hemoglobin 30.1 pg (27.0-33.0); Mean Corpuscular Volume 88.8 fL (80.0-98.0); Mean Platelet Volume 9.4 fL (9.4-12.3); Monocytes Absolute Auto 0.5 X10*3/uL (0.1-1.2); Monocytes Percent Auto 5.9 % (2-11); Neutrophils Absolute Auto 5.6 x10*3/uL (2.0-8.3); Neutrophils Percent Auto 71.3 % (45-73); Platelet Count 268 X10*3/uL (160-400); Red Blood Count 3.66 X10*6/uL (4.20-5.50); Red Cell Distribution Width 11.9 % (11.0-16.0); White Blood Count 7.9 X10*3/uL (4.8-10.8)
[2023-07-27 14:18] LABS: Alanine Aminotransferase 11 U/L (0-31); Albumin Level 3.2 g/dL (3.5-5.0); Alkaline Phosphatase 47 U/L (39-117); Anion Gap 10 (12-20); Aspartate Amino Transferase 16 U/L (5-31); Bilirubin Total 0.2 mg/dL (0.0-1.0); Blood Urea Nitrogen 10 mg/dL (9-16); Calcium 8.8 mg/dL (8.4-10.2); Carbon Dioxide 22 mmol/L (22-29); Chloride 108 mmol/L (96-108); Creatinine Clr Calc Pharmacy 149.8; Estimated Glomerular Filt Rate > 60; Glucose Random 75 mg/dL (60-115); Potassium 3.9 mmol/L (3.3-5.1); Sodium 136 mmol/L (135-145); Total Protein 6.9 g/dL (6.5-8.0)
[2023-07-27 14:26] LABS: Troponin-I High Sensitivity < 2.7 ng/L (<3.5-17.0)
[2023-07-27 15:38] VITALS: BP 120/70; PULSE 77; RESP 14; O2SAT 99
[2023-07-27 16:03] LABS: Appearance Urine Turbid; Color Urine Yellow; Glucose Urine UA Negative (Negative); Leukocyte Esterase Urine Moderate (2+) (Negative); Nitrite Urine Negative (Negative); PH 6.5 (5.0-9.0); Specific Gravity - Urine 1.025 (1.005-1.025); UMIC TRIGGER UACC YES; Urine Blood Negative (Negative); Urine Ketones Negative (Negative); Urine Protein Trace mg/dL (Neg-Trace)
[2023-07-27 16:39] LABS: Bacteria Urine 3+ (None Seen); Hyaline Casts Urine 0-2 /LPF (0-2); RBC Urine 0-2 /HPF (0-2); UACC Culture Trigger YES; WBC Urine 21-50 /HPF (0-5)
== END 2023-07-27 16:23 | disposition home or self-care (01) ==
PROVIDERS: Registered Nurse Emergency; Emergency Provider Emergency Medicine; PCP Nurse Practitioner Family
DX: R07.89 Other chest pain (principal); R05.9 Cough, unspecified; R51.9 Headache, unspecified; Z79.899 Other long term (current) drug therapy
CPT/HCPCS: 36415; 80053; 81001; 81003; 84484; 85025; 87086; 93005; 99283; 99284

== ENCOUNTER 2023-08-20 10:43 | Outpatient (REF) | payer OTHER, SELFPAY ==
[2023-08-20 12:45] LABS: Hematocrit 33.1 % (37.0-47.0); Mean Corpuscular HGB Conc 33.2 g/dl (31.0-35.0); Mean Corpuscular Hemoglobin 29.6 pg (27.0-33.0); Mean Platelet Volume 9.7 fL (9.4-12.3); Platelet Count 267 X10*3/uL (160-400); Red Blood Count 3.72 X10*6/uL (4.20-5.50); Red Cell Distribution Width 12.4 % (11.0-16.0); White Blood Count 9.1 X10*3/uL (4.8-10.8)
[2023-08-20 13:12] LABS: Glucose 1 Hour PP 50gm Dose 127 mg/dL (60-140)
[2023-08-20 13:34] LABS: Syphilis Screen Nonreactive (Nonreactive)
== END 2023-08-20 10:44 | disposition home or self-care (01) ==
LOC: HO.LAB 10:43
PROVIDERS: Visit Provider Advanced Practice Midwife
DX: Z34.92 Encounter for supervision of normal pregnancy, unspecified, second trimester (principal); Z20.2 Contact with and (suspected) exposure to infections with a predominantly sexual mode of transmission
CPT/HCPCS: 36415; 82950; 85027; 86780; 86850

== ENCOUNTER 2023-08-21 10:23 | Outpatient (AMB) | payer OTHER, SELFPAY ==
[2023-08-21 10:53] VITALS: BP 122/70; BMI 35.8
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
== END 2023-08-21 11:52 | disposition home or self-care (01) ==
LOC: HO.HWS 10:23
PROVIDERS: PCP Nurse Practitioner Family; Visit Provider Advanced Practice Midwife
DX: Z34.90 Encounter for supervision of normal pregnancy, unspecified, unspecified trimester (principal); O26.899 Other specified pregnancy related conditions, unspecified trimester; Z67.91 Unspecified blood type, Rh negative
CPT/HCPCS: 25942

== ENCOUNTER → 2023-08-21 10:23 | Outpatient (BNVA) | payer OTHER, SELFPAY | PROVIDERS: PCP Nurse Practitioner Family; Visit Provider Advanced Practice Midwife | DX: O26.893 Other specified pregnancy related conditions, third trimester (principal); Z67.91 Unspecified blood type, Rh negative; Z3A.30 30 weeks gestation of pregnancy | CPT/HCPCS: 96372; 99212 ==

== ENCOUNTER 2023-09-04 11:21 | Outpatient (AMB) | payer OTHER, SELFPAY ==
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
[2023-09-04 11:56] VITALS: BP 116/60; BMI 36.3
== END 2023-09-04 12:28 | disposition home or self-care (01) ==
LOC: HO.HWS 11:21
PROVIDERS: PCP Nurse Practitioner Family; Visit Provider Advanced Practice Midwife
DX: Z34.93 Encounter for supervision of normal pregnancy, unspecified, third trimester (principal)
CPT/HCPCS: 25942

== ENCOUNTER → 2023-09-04 11:21 | Outpatient (BNVA) | payer OTHER, SELFPAY | PROVIDERS: PCP Nurse Practitioner Family; Visit Provider Advanced Practice Midwife | DX: Z34.83 Encounter for supervision of other normal pregnancy, third trimester (principal); Z23 Encounter for immunization; Z3A.32 32 weeks gestation of pregnancy | CPT/HCPCS: 90471; 90715; 99212 ==

== ENCOUNTER 2023-09-20 13:58 | Outpatient (AMB) | payer OTHER, SELFPAY ==
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
[2023-09-20 14:17] VITALS: BP 110/62; BMI 37.3
== END 2023-09-20 14:49 | disposition home or self-care (01) ==
LOC: HO.HWSM 13:58
PROVIDERS: PCP Nurse Practitioner Family; Visit Provider Advanced Practice Midwife
DX: O26.899 Other specified pregnancy related conditions, unspecified trimester (principal); Z67.91 Unspecified blood type, Rh negative; Z34.93 Encounter for supervision of normal pregnancy, unspecified, third trimester; Z34.90 Encounter for supervision of normal pregnancy, unspecified, unspecified trimester
CPT/HCPCS: 25942

== ENCOUNTER → 2023-09-20 13:58 | Outpatient (BNVA) | payer OTHER, SELFPAY | PROVIDERS: PCP Nurse Practitioner Family; Visit Provider Advanced Practice Midwife | DX: O26.893 Other specified pregnancy related conditions, third trimester (principal); Z67.91 Unspecified blood type, Rh negative; Z3A.34 34 weeks gestation of pregnancy | CPT/HCPCS: 81003; 99212 ==

== ENCOUNTER 2023-10-01 16:21 | Outpatient (AMB) | payer OTHER, SELFPAY ==
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
[2023-10-01 16:33] VITALS: BP 130/76; BMI 38.1
== END 2023-10-01 16:48 | disposition home or self-care (01) ==
PROVIDERS: PCP Nurse Practitioner Family; Visit Provider Internal Medicine
DX: J06.9 Acute upper respiratory infection, unspecified (principal)
CPT/HCPCS: 99213

== ENCOUNTER 2023-10-04 11:53 | Outpatient (REF) | payer OTHER, SELFPAY ==
[2023-10-04 13:13] LABS: Influenza A PCR NEGATIVE (Negative); Influenza B PCR NEGATIVE (Negative); Resp Syncy Virus RNA Qual PCR NEGATIVE (Negative); SARS COV2 PCR INHOUSE NEGATIVE (Negative)
== END 2023-10-04 11:54 | disposition home or self-care (01) ==
LOC: HO.LAB 11:53
PROVIDERS: PCP Internal Medicine; Visit Provider Internal Medicine
DX: O99.213 Obesity complicating pregnancy, third trimester (principal); O26.893 Other specified pregnancy related conditions, third trimester; O99.820 Streptococcus B carrier state complicating pregnancy; R09.89 Other specified symptoms and signs involving the circulatory and respiratory systems; J06.9 Acute upper respiratory infection, unspecified; Z67.91 Unspecified blood type, Rh negative; Z3A.36 36 weeks gestation of pregnancy; Z79.899 Other long term (current) drug therapy
CPT/HCPCS: 0241U; 81003; 99212

== ENCOUNTER 2023-10-04 14:40 | Outpatient (AMB) | payer OTHER, SELFPAY ==
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
[2023-10-04 14:46] VITALS: BP 118/68; BMI 38.1
== END 2023-10-04 15:58 | disposition home or self-care (01) ==
LOC: HO.HWSM 14:40
PROVIDERS: PCP Internal Medicine; Visit Provider Advanced Practice Midwife
DX: J06.9 Acute upper respiratory infection, unspecified (principal); Z34.93 Encounter for supervision of normal pregnancy, unspecified, third trimester; O26.899 Other specified pregnancy related conditions, unspecified trimester; Z67.91 Unspecified blood type, Rh negative; O99.820 Streptococcus B carrier state complicating pregnancy; Z34.90 Encounter for supervision of normal pregnancy, unspecified, unspecified trimester
CPT/HCPCS: 25942

== ENCOUNTER 2023-10-11 09:51 | Outpatient (REF) | payer OTHER, SELFPAY ==
[2023-10-12 03:38] LABS: CT PCR NOT DETECTED (Not Detect.); NG PCR NOT DETECTED (Not Detect.)
== END 2023-10-11 09:52 | disposition home or self-care (01) ==
LOC: HO.LAB 09:51
PROVIDERS: PCP Internal Medicine; Visit Provider Advanced Practice Midwife
DX: Z01.419 Encounter for gynecological examination (general) (routine) without abnormal findings (principal); O99.213 Obesity complicating pregnancy, third trimester; O26.893 Other specified pregnancy related conditions, third trimester; O99.820 Streptococcus B carrier state complicating pregnancy; J06.9 Acute upper respiratory infection, unspecified; Z3A.37 37 weeks gestation of pregnancy; Z79.899 Other long term (current) drug therapy
CPT/HCPCS: 0353U; 81003; 99212

== ENCOUNTER 2023-10-11 09:51 | Outpatient (AMB) | payer OTHER, SELFPAY ==
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
[2023-10-11 09:52] VITALS: BP 118/68; BMI 38.7
== END 2023-10-11 10:31 | disposition home or self-care (01) ==
LOC: HO.HWSM 09:51
PROVIDERS: PCP Internal Medicine; Visit Provider Advanced Practice Midwife
DX: O99.820 Streptococcus B carrier state complicating pregnancy (principal); J06.9 Acute upper respiratory infection, unspecified; Z34.93 Encounter for supervision of normal pregnancy, unspecified, third trimester; Z34.90 Encounter for supervision of normal pregnancy, unspecified, unspecified trimester
CPT/HCPCS: 25942

== ENCOUNTER 2023-10-18 09:33 | Outpatient (AMB) | payer OTHER, SELFPAY ==
[2023-10-18 09:34] VITALS: BP 110/70; BMI 39.4
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
== END 2023-10-18 10:39 | disposition home or self-care (01) ==
LOC: HO.HWSM 09:33
PROVIDERS: PCP Internal Medicine; Visit Provider Advanced Practice Midwife
DX: Z34.93 Encounter for supervision of normal pregnancy, unspecified, third trimester (principal); K59.01 Slow transit constipation; Z34.90 Encounter for supervision of normal pregnancy, unspecified, unspecified trimester
CPT/HCPCS: 25942

== ENCOUNTER → 2023-10-18 09:33 | Outpatient (BNVA) | payer OTHER, SELFPAY | PROVIDERS: PCP Internal Medicine; Visit Provider Advanced Practice Midwife | DX: Z34.03 Encounter for supervision of normal first pregnancy, third trimester (principal); Z3A.38 38 weeks gestation of pregnancy | CPT/HCPCS: 81003; 99212 ==

== ENCOUNTER 2023-10-22 08:55 | Outpatient (AMB) | payer OTHER, SELFPAY ==
[2023-10-22 09:06] VITALS: BP 112/68; BMI 39.4
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
== END 2023-10-22 10:42 | disposition home or self-care (01) ==
LOC: HO.HWSM 08:55
PROVIDERS: PCP Internal Medicine; Visit Provider Advanced Practice Midwife
DX: O99.820 Streptococcus B carrier state complicating pregnancy (principal); K59.01 Slow transit constipation; Z34.93 Encounter for supervision of normal pregnancy, unspecified, third trimester; O26.899 Other specified pregnancy related conditions, unspecified trimester; Z67.91 Unspecified blood type, Rh negative
CPT/HCPCS: 25942

== ENCOUNTER → 2023-10-22 08:55 | Outpatient (BNVA) | payer OTHER, SELFPAY | PROVIDERS: PCP Internal Medicine; Visit Provider Advanced Practice Midwife | DX: O26.893 Other specified pregnancy related conditions, third trimester (principal); O99.820 Streptococcus B carrier state complicating pregnancy; K59.01 Slow transit constipation; Z67.91 Unspecified blood type, Rh negative; Z3A.39 39 weeks gestation of pregnancy | CPT/HCPCS: 99212 ==

== ENCOUNTER 2023-10-29 13:13 | Outpatient (AMB) | payer OTHER, SELFPAY ==
[2023-10-29 13:18] VITALS: BP 130/78; BMI 39.2
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
== END 2023-10-29 14:15 | disposition home or self-care (01) ==
LOC: HO.HWSM 13:13
PROVIDERS: PCP Internal Medicine; Visit Provider Advanced Practice Midwife
DX: K59.01 Slow transit constipation (principal); O99.820 Streptococcus B carrier state complicating pregnancy; Z34.93 Encounter for supervision of normal pregnancy, unspecified, third trimester; O36.8190 Decreased fetal movements, unspecified trimester, not applicable or unspecified
CPT/HCPCS: 25942; 59426

== ENCOUNTER 2023-10-29 13:13 | Outpatient (REF) | payer OTHER, SELFPAY ==
[2023-10-30 09:38] LABS: CT PCR NOT DETECTED (Not Detect.); NG PCR NOT DETECTED (Not Detect.)
[2023-10-30 10:07] LABS: BV Int Neg Control Negative (Negative); BV Int Pos Control Positive (Positive)
== END 2023-10-29 13:14 | disposition home or self-care (01) ==
LOC: HO.LNP 13:13
PROVIDERS: PCP Internal Medicine; Visit Provider Advanced Practice Midwife
DX: O26.893 Other specified pregnancy related conditions, third trimester (principal); N89.8 Other specified noninflammatory disorders of vagina; Z3A.40 40 weeks gestation of pregnancy
CPT/HCPCS: 0353U; 87480; 87510; 87660; 99212

== ENCOUNTER 2024-07-15 15:40 | Outpatient (AMB) | payer OTHER, SELFPAY ==
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
[2024-07-15 15:43] VITALS: BP 130/80; BMI 40.5
== END 2024-07-15 16:12 | disposition home or self-care (01) ==
PROVIDERS: PCP Internal Medicine; Visit Provider Internal Medicine
DX: Z00.00 Encounter for general adult medical examination without abnormal findings (principal); F33.0 Major depressive disorder, recurrent, mild; E66.01 Morbid (severe) obesity due to excess calories; Z68.41 Body mass index [BMI] 40.0-44.9, adult

== ENCOUNTER → 2024-07-15 15:40 | Outpatient (BNVA) | payer OTHER, SELFPAY | PROVIDERS: PCP Internal Medicine; Visit Provider Internal Medicine | DX: Z00.00 Encounter for general adult medical examination without abnormal findings (principal); F33.0 Major depressive disorder, recurrent, mild; E66.01 Morbid (severe) obesity due to excess calories; Z68.41 Body mass index [BMI] 40.0-44.9, adult; Z79.899 Other long term (current) drug therapy; Z23 Encounter for immunization | CPT/HCPCS: 90471; 90656; 96127; 99395 ==

== ENCOUNTER 2024-11-16 07:46 | Emergency (ER) | payer OTHER, SELFPAY ==
--- NOTE | ~2024-11-16 | US_ITS ---
CLINICAL HISTORY: abdominal pain, early US OB 1st trimester transabdominal Comparison: None Findings: Single intrauterine gestational sac measuring 5 weeks and 3 days (Compatible with an STEFFANY of 07/20/2025). No evidence of yolk sac or pole at this time possibly due to early gestation. Questionable small subchorionic hemorrhage. 2.3 cm right ovarian versus paraovarian simple cyst. The right ovary along with the cyst measures up to 4.3 x 3.3 x 3.3 cm. Left ovary measures 3 x 2.1 x 2.2 cm. Small Simplefree pelvic fluid. IMPRESSION: Single intrauterine gestational sac measuring 5 weeks and 3 days. No evidence of yolk sac or pole at this time possibly due to early gestation. Appropriate follow-up (including follow-up ultrasound) recommended. Questionable small subchorionic hemorrhage. 2.3 cm right ovarian versus paraovarian simple cyst. This document has been electronically signed by: Naz Bueno MD on 11/16/2024 11:27:09
[2024-11-16 07:57] VITALS: BP 117/64; PULSE 79; RESP 14; TEMP 36.7; O2SAT 99; BMI 35.8
[2024-11-16 08:23] LABS: MANUAL DIFF FLAG NO
[2024-11-16 08:27] LABS: Appearance Urine Hazy; Basophils Percent Auto 0.6 % (0-2); Color Urine Yellow; Eosinophils Absolute Auto 0.2 X10*3/uL (0.0-0.4); Eosinophils Percent Auto 3.9 % (0-4); Glucose Urine UA Negative (Negative); Hematocrit 35.7 % (37.0-47.0); Hemoglobin 11.8 g/dl (12.0-16.0); Imm Gran Abs Auto 0.01 X10*3/uL (0.00-0.03); Imm Gran Pct Auto 0.2 % (0.0-0.4); Leukocyte Esterase Urine Negative (Negative); Lymphocytes Absolute Auto 1.7 X10*3/uL (1.2-4.9); Lymphocytes Percent Auto 35.9 % (20-40); Mean Corpuscular HGB Conc 33.1 g/dl (31.0-35.0); Mean Corpuscular Hemoglobin 29.7 pg (27.0-33.0); Mean Corpuscular Volume 89.9 fL (80.0-98.0); Mean Platelet Volume 9.9 fL (9.4-12.3); Monocytes Absolute Auto 0.3 X10*3/uL (0.1-1.2); Monocytes Percent Auto 7.1 % (2-11); Neutrophils Absolute Auto 2.5 x10*3/uL (2.0-8.3); Neutrophils Percent Auto 52.3 % (45-73); Nitrite Urine Negative (Negative); Platelet Count 283 X10*3/uL (160-400); Red Blood Count 3.97 X10*6/uL (4.20-5.50); Red Cell Distribution Width 13.3 % (11.0-16.0); Specific Gravity - Urine >= 1.030 (1.005-1.025); Urine Blood Negative (Negative); Urine Ketones Negative (Negative); Urine Protein Negative (Neg-Trace); White Blood Count 4.8 X10*3/uL (4.8-10.8)
[2024-11-16 08:33] LABS: IDNOW Serial# 08D9AD1C; Strep A Nucleic Acid Negative (Negative)
[2024-11-16 08:50] LABS: Alanine Aminotransferase 10 U/L (0-31); Albumin Level 3.7 g/dL (3.5-5.0); Alkaline Phosphatase 36 U/L (39-117); Anion Gap 12 (12-20); Aspartate Amino Transferase 19 U/L (5-31); Bilirubin Total 0.7 mg/dL (0.0-1.0); Blood Urea Nitrogen 10 mg/dL (9-16); Calcium 8.6 mg/dL (8.4-10.2); Carbon Dioxide 20 mmol/L (22-29); Chloride 112 mmol/L (96-108); Creatinine Clr Calc Pharmacy 162.4; Estimated Glomerular Filt Rate > 60; Glucose Random 84 mg/dL (60-115); HCG Quantitative 7254 mIU/mL; Potassium 3.8 mmol/L (3.3-5.1); Sodium 140 mmol/L (135-145); Total Protein 7.1 g/dL (6.5-8.0)
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
[2024-11-16 09:19] LABS: Influenza A PCR NEGATIVE (Negative); Influenza B PCR NEGATIVE (Negative); Resp Syncy Virus RNA Qual PCR NEGATIVE (Negative); SARS COV2 PCR INHOUSE NEGATIVE (Negative)
--- OUTSIDE RECORDS SUMMARY | 2024-11-16 12:58 | XMS_ITS | Clinical Summary ---
Author Organization [facility] 's Address [address] [place] [address] Care Team Providers Care Concrete Spreader Name Role Phone Becky Pradhan Primary Care Provider Source Comments Please note that some or all of the patient's information could have additional privacy protections. State laws allow health care providers to render certain types of treatment to minors without parental consent. Please do not assume that this information can be shared solely by obtaining just the consent of the patient's parent/guardian. Please determine if all or part of the patient's care was rendered without parent/guardian involvement. And, if so, obtain the minor's consent prior to disclosure.[facility] Allergies No known active allergies Medications omeprazole (PRILOSEC) 20 MG capsule Take 20 mg by mouth daily 2 Active ondansetron (ZOFRAN-ODT) 4 MG disintegrating tablet DISSOLVE ONE TABLET BY MOUTH EVERY 8 HOURS NEEDED FOR NAUSEA AND VOMITING 2 Active Active Problems Problem Noted Date Diagnosed Date Nausea and vomiting, intract ability of vomiting not specified, unspecified vomiting type 12/06/2021 Overview (12/06/2021): Added automatically from request for surgery [id number] Family History Medical History Relation Name Comments Hypertension Mother Anesthesia problems Neg Hx Relation Name Status Comments Mother Social History Tobacco Use Types Packs/Day Years Used Date Smoking Tobacco: Never Smokeless Tobacco: Never Other Needs Answer Date Recorded Anything else about your child you'd like help w ith? Not on file 06/08/2023 Share good news about positive changes: Not on f ile 06/08/2023 Comments No Sex and Gender Information Value Date Recorded Sex Assigned at Not on file Legal Sex Female 12:13 PM EST Gender Identity Not on file Sexual Orientation Not on file Last Filed Vital Signs Vital Sign Reading Time Taken Comments Blood Pressure 124/81 12/06/2021 10:00 AM EDT Pulse 78 12/06/2021 10:00 AM EDT Temperature - - Respiratory Rate - - Oxygen Saturation - - Inhaled Oxygen Concentration - - Weight 115.3 kg (254 lb 3.1 oz) 022 10:00 AM EDT Height 161.4 cm (5' 3.54 ) 12/06/2021 1 0:00 AM EDT Body Mass Index 44.26 12/06/2021 10:00 AM EDT Plan of Treatment Health Maintenance Due Date Last Done Comments DTaP/TDAP/TD VACCINES (1 - Tdap) 2009 ADOLESCENT HIV SCREENING 2015 COVID-19 Vaccine (2023-2 5 season) 2024 INFLUENZA (#1) 2024 NIRSEVIMAB VACCINES UNDER 8 MONTHS Aged Out No longer eligible based on patient's age to complete this topic Insurance [facility] Care Teams Concrete Spreader Relationship Specialty Start Date End Date Becky Pradhan PA [address] [place] [address] [place] [address] PCP - General Physician Misdraw Hand 11/16/21
== END 2024-11-16 12:55 | disposition home or self-care (01) ==
PROVIDERS: Physician Assistant Medical; Emergency Provider Emergency Medicine; PCP Internal Medicine
DX: O21.0 Mild hyperemesis gravidarum (principal); O34.81 Maternal care for other abnormalities of pelvic organs, first trimester; N83.201 Unspecified ovarian cyst, right side; Z3A.01 Less than 8 weeks gestation of pregnancy; Z79.899 Other long term (current) drug therapy; Z03.818 Encounter for observation for suspected exposure to other biological agents ruled out
CPT/HCPCS: 0241U; 36415; 76801; 76817; 80053; 81003; 84702; 85025; 87651; 99282; 99284

== ENCOUNTER 2024-11-26 14:53 | Outpatient (REF) | payer OTHER, SELFPAY ==
--- NOTE | ~2024-11-26 | US_ITS ---
EXAMINATION: US OBSTETRICAL ULTRASOUND CLINICAL INFORMATION: Subchorionic hemorrhage. Pelvic pain. HCG 11/13/2024 measuring 7254 COMPARISON: None available. LMP: 10/13/2024. Gestational age by maternal dates is 6 weeks and 2 days. Estimated date of delivery by maternal dates is 07/20/2025. TECHNIQUE: Transabdominal and transvaginal imaging of pelvis is performed. FINDINGS: There is a single intrauterine gestational sac with no visible yolk sac. There is a soft tissue density seen in the gestational sac not typical appearance of a pole. The heart rate within the soft tissue measures 121 bpm MATERNAL ADNEXA: The right maternal ovary measures 4.4 x 3.8 x 2.4 cm. There is anechoic simple cyst measuring 2.5 x 2.8 x 2.2 cm. There are slightly irregular shapes the exiting examination cyst measuring 1.7 x 2.0 x 2.0 cm likely corpus luteal cyst. There is a small subchorionic bleed measuring 1.9 x 0.8 x 0.6 cm. The uterus is retroverted and retroflexed. The left maternal ovary measures 3.2 x 1.8 x 1.8 cm. There is subtle echogenic area along the lateral border measuring 0.7 x 0.5 x 0.6 cm. Question complex or hemorrhagic cyst. There is no significant maternal adnexal mass. No maternal pelvic ascites. US/US OB pelvic and transvaginal IMPRESSION: Intrauterine gestational sac and a soft tissue density within the sac slightly atypical for pole. Differential diagnosis includes molar or abnormal tissue or hemorrhage surrounding the pole. Recommend correlation with serial HCG and a follow-up ultrasound in 2 weeks. Heart rate within the soft tissue density measures 1 21 bpm There is a small subchorionic bleed measuring 1.9 cm in maximum length. Simple cyst and a corpus luteal cyst right ovary. Echogenic area left ovary likely complex or hemorrhagic cyst. Results were [place] texted to Ariella Gamboa in charge of patient at 9:00 AM. Electronically signed by: Collin Etienne MD 11/27/2024 09:10 AM [facility]
--- OUTSIDE RECORDS SUMMARY | 2024-11-26 18:01 | XMS_ITS | Clinical Summary ---
Author Organization [facility] 's Address [address] [place] [address] Care Team Providers Care Reliability Technicians Name Role Phone Becky Pradhan Primary Care [...] so, obtain the minor's consent prior to disclosure.[facility] Allergies No known active allergies Medications [...] (12/06/2021): Added automatically from request for surgery [id number] Family History Medical History Relation Name Comments [...] patient's age to complete this topic Insurance [facility] Care Teams Reliability Technicians Relationship Specialty Start Date End Date Becky Pradhan PA [address] [place] [address] [place] [address] PCP - General Physician Film Librarian 11/16/21
== END 2024-11-26 14:54 | disposition home or self-care (01) ==
LOC: HO.US 14:53
PROVIDERS: PCP Internal Medicine; Visit Provider Advanced Practice Midwife
DX: O46.8X1 Other antepartum hemorrhage, first trimester (principal)
CPT/HCPCS: 76801; 76817

== ENCOUNTER → 2024-11-26 14:57 | Outpatient (BNV) | payer OTHER, SELFPAY | PROVIDERS: PCP Internal Medicine; Visit Provider Radiology Diagnostic Radiology | DX: O28.3 Abnormal ultrasonic finding on antenatal screening of mother (principal) | CPT/HCPCS: 76801; 76817 ==

== ENCOUNTER 2024-11-26 16:34 | Outpatient (REF) | payer OTHER, SELFPAY ==
[2024-11-26 18:29] LABS: HCG Quantitative 40665 mIU/mL
--- OUTSIDE RECORDS SUMMARY | 2024-11-26 19:23 | XMS_ITS | Clinical Summary ---
Author Organization [facility] 's Address [address] [place] [address] Care Team Providers Care Millstone Cleaner Name Role Phone Becky Pradhan Primary Care Provider [phone] Source Comments Please note that some or [...] so, obtain the minor's consent prior to disclosure.[facility] Allergies No known active allergies Medications [...] (12/06/2021): Added automatically from request for surgery [id number] Family History Medical History Relation Name Comments [...] patient's age to complete this topic Insurance [facility] Care Teams Millstone Cleaner Relationship Specialty Start Date End Date Becky Pradhan PA [address] [place] [address] [place] [address] PCP - General Physician Color Blender 11/16/21
== END 2024-11-26 16:35 | disposition home or self-care (01) ==
LOC: HO.LAB 16:34
PROVIDERS: PCP Internal Medicine; Visit Provider Advanced Practice Midwife
DX: Z34.90 Encounter for supervision of normal pregnancy, unspecified, unspecified trimester (principal)
CPT/HCPCS: 36415; 84702

== ENCOUNTER 2024-11-27 10:26 | Outpatient (AMB) | payer OTHER, SELFPAY ==
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
--- OUTSIDE RECORDS SUMMARY | 2024-11-27 12:27 | XMS_ITS | Clinical Summary ---
Author Organization [facility] 's Address [address] [place] [address] Care Team Providers Care Business Unit Leader Name Role Phone Becky Pradhan Primary Care [...] so, obtain the minor's consent prior to disclosure.[facility] Allergies No known active allergies Medications [...] (12/06/2021): Added automatically from request for surgery [id number] Family History Medical History Relation Name Comments [...] patient's age to complete this topic Insurance [facility] Care Teams Business Unit Leader Relationship Specialty Start Date End Date Becky Pradhan PA [address] [place] [address] [place] [address] PCP - General Physician Remote Computer Terminal Operator 11/16/21
== END 2024-11-27 12:28 | disposition home or self-care (01) ==
LOC: HO.HWS 10:26
PROVIDERS: PCP Internal Medicine; Visit Provider Advanced Practice Midwife
DX: O28.3 Abnormal ultrasonic finding on antenatal screening of mother (principal)
CPT/HCPCS: 99212

== ENCOUNTER 2025-01-16 10:12 | Outpatient (REF) | payer OTHER, SELFPAY ==
--- OUTSIDE RECORDS SUMMARY | 2025-01-16 12:30 | XMS_ITS | Clinical Summary ---
Author Organization [facility] 's Address [address] [place] [address] Care Team Providers Care Continuous Improvement Consultant Name Role Phone Becky Pradhan Primary Care Provider [phone] Source Comments Please note that some or [...] so, obtain the minor's consent prior to disclosure.[facility] Allergies No known active allergies Medications [...] (12/06/2021): Added automatically from request for surgery [id number] Family History Medical History Relation Name Comments [...] patient's age to complete this topic Insurance [facility] Care Teams Continuous Improvement Consultant Relationship Specialty Start Date End Date Becky Pradhan PA [address] [place] [address] [place] [address] PCP - General Physician Payloader Operator 11/16/21
[2025-01-16 18:13] LABS: Bacterial Vaginosis PCR NEGATIVE (Negative); Candida Group PCR NOT DETECTED (Not Detect); Candida glab krusei PCR NOT DETECTED (Not Detect); Trichomonas vaginalis PCR NOT DETECTED (Not Detect)
[2025-01-17 05:36] LABS: CT PCR NOT DETECTED (Not Detect.); NG PCR NOT DETECTED (Not Detect.)
== END 2025-01-16 10:13 | disposition home or self-care (01) ==
LOC: HO.LNP 10:12
PROVIDERS: PCP Internal Medicine; Visit Provider Advanced Practice Midwife
DX: N92.6 Irregular menstruation, unspecified (principal); Z97.5 Presence of (intrauterine) contraceptive device; E66.01 Morbid (severe) obesity due to excess calories; Z87.59 Personal history of other complications of pregnancy, childbirth and the puerperium
CPT/HCPCS: 81515; 87491; 87591; 99212

== ENCOUNTER 2025-01-16 10:12 | Outpatient (AMB) | payer OTHER, SELFPAY ==
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
[2025-01-16 10:29] VITALS: BP 118/70; BMI 35.7
--- OUTSIDE RECORDS SUMMARY | 2025-01-16 10:38 | XMS_ITS | Clinical Summary ---
Author Organization [facility] 's Address [address] [place] [address] Care Team Providers Care Knitting Machine Fixer Head Name Role Phone Becky Pradhan Primary Care [...] so, obtain the minor's consent prior to disclosure.[facility] Allergies No known active allergies Medications [...] (12/06/2021): Added automatically from request for surgery [id number] Family History Medical History Relation Name Comments [...] patient's age to complete this topic Insurance [facility] Care Teams Knitting Machine Fixer Head Relationship Specialty Start Date End Date Becky Pradhan PA [address] [place] [address] [place] [address] PCP - General Physician Tankage Grinder Operator 11/16/21
== END 2025-01-16 14:43 | disposition home or self-care (01) ==
LOC: HO.HWS 10:12
PROVIDERS: PCP Internal Medicine; Visit Provider Advanced Practice Midwife
DX: E66.01 Morbid (severe) obesity due to excess calories (principal); Z87.59 Personal history of other complications of pregnancy, childbirth and the puerperium; Z97.5 Presence of (intrauterine) contraceptive device
CPT/HCPCS: 99213

== ENCOUNTER 2025-01-20 10:09 | Outpatient (AMB) | payer OTHER, SELFPAY ==
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
--- OUTSIDE RECORDS SUMMARY | 2025-01-20 11:35 | XMS_ITS | Clinical Summary ---
Author Organization [facility] 's Address [address] [place] [address] Care Team Providers Care Pediatric Np Name Role Phone Becky Pradhan Primary Care [...] so, obtain the minor's consent prior to disclosure.[facility] Allergies No known active allergies Medications [...] (12/06/2021): Added automatically from request for surgery [id number] Family History Medical History Relation Name Comments [...] patient's age to complete this topic Insurance [facility] Care Teams Pediatric Np Relationship Specialty Start Date End Date Becky Pradhan PA [address] [place] [address] [place] [address] PCP - General Physician Alternative Energy Engineer 11/16/21
== END 2025-01-20 11:05 | disposition home or self-care (01) ==
LOC: HO.HWSM 10:09
PROVIDERS: PCP Internal Medicine; Visit Provider Advanced Practice Midwife
DX: Z87.59 Personal history of other complications of pregnancy, childbirth and the puerperium (principal); Z97.5 Presence of (intrauterine) contraceptive device
CPT/HCPCS: 99213

== ENCOUNTER 2025-06-09 10:28 | Outpatient (REF) | payer OTHER, SELFPAY ==
[2025-06-10 12:01] LABS: Bacterial Vaginosis PCR NEGATIVE (Negative); Candida Group PCR NOT DETECTED (Not Detect); Candida glab krusei PCR NOT DETECTED (Not Detect); Trichomonas vaginalis PCR NOT DETECTED (Not Detect)
[2025-06-10 12:32] LABS: CT PCR NOT DETECTED (Not Detect.); NG PCR NOT DETECTED (Not Detect.)
== END 2025-06-09 10:29 | disposition home or self-care (01) ==
LOC: HO.LNP 10:28
PROVIDERS: PCP Internal Medicine; Visit Provider Advanced Practice Midwife
DX: N92.6 Irregular menstruation, unspecified (principal); R10.2 Pelvic and perineal pain; Z20.2 Contact with and (suspected) exposure to infections with a predominantly sexual mode of transmission; Z87.59 Personal history of other complications of pregnancy, childbirth and the puerperium; Z32.02 Encounter for pregnancy test, result negative
CPT/HCPCS: 81025; 81515; 87491; 87591; 99212

== ENCOUNTER 2025-06-09 10:28 | Outpatient (AMB) | payer OTHER, SELFPAY ==
[2025-06-09 10:49] VITALS: BMI 35.5
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
--- OUTSIDE RECORDS SUMMARY | 2025-06-09 13:42 | XMS_ITS | Clinical Summary ---
Author Organization [facility] 's Address [address] [place] [address] Care Team Providers Care Butcher All Round Name Role Phone Becky Pradhan Primary Care Provider [phone] Source Comments Please note that some or [...] so, obtain the minor's consent prior to disclosure.[facility] Allergies No known active allergies Medications [...] (12/06/2021): Added automatically from request for surgery [id number] Family History Medical History Relation Name Comments [...] SCREENING 2015 COVID-19 Vaccine (2023-2 5 season) 2025 INFLUENZA (#1) 2025 NIRSEVIMAB VACCINES UNDER 8 MONTHS Aged Out No longer eligible based on patient's age to complete this topic Insurance [facility] Care Teams Butcher All Round Relationship Specialty Start Date End Date Becky Pradhan PA [address] [place] [address] [place] [address] PCP - General Physician Salesperson [employer] 11/16/21
== END 2025-06-09 11:45 | disposition home or self-care (01) ==
LOC: HO.HWS 10:28
PROVIDERS: PCP Internal Medicine; Visit Provider Advanced Practice Midwife
DX: Z87.59 Personal history of other complications of pregnancy, childbirth and the puerperium (principal); R10.2 Pelvic and perineal pain; N92.6 Irregular menstruation, unspecified; Z32.02 Encounter for pregnancy test, result negative
CPT/HCPCS: 99213

== ENCOUNTER 2025-06-22 08:01 | Outpatient (REF) | payer OTHER, SELFPAY ==
--- NOTE | ~2025-06-22 | US_ITS ---
CLINICAL HISTORY: IUD check - IUD placed in 3 2024 Ultrasound of the female pelvis Comparison: None provided Technique: Grayscale ultrasound with assistance of color Doppler. Transabdominal scanning performed for overall anatomy. Transvaginal scanning performed for better anatomic delineation. Findings: Retroverted uterus measures 7.7 cm. Homogeneous myometrium, no focal lesion is seen. Unremarkable endometrium, 8 mm in thickness. IUD is properly placed in the endometrium. Normal cervix. Right ovary is normal in size and measures 4.8 x 3.1 x 2.5 cm, hemorrhagic cyst 1.4 cm, no suspicious ovarian lesion or abnormal vascular flow. Left ovary is normal in size and measures 3.7 x 1.9 x 2.4 cm, corpus luteal cyst 1.6 cm, punctate echogenic foci likely calcification noted. No abnormal vascular flow. Small free fluid near uterine fundus. Impression: 1. Satisfactory position of IUD. 2. Small free fluid in the pelvis, most likely physiologic. This document has been electronically signed by: Johanna Macias MD on 06/22/2025 16:27:21
--- OUTSIDE RECORDS SUMMARY | 2025-06-22 08:04 | XMS_ITS | Clinical Summary ---
Author Organization [facility] 's Address [address] [place] [address] Care Team Providers Care Dental Ceramist Assistant Name Role Phone Becky Pradhan Primary Care [...] so, obtain the minor's consent prior to disclosure.[facility] Allergies No known active allergies Medications [...] (12/06/2021): Added automatically from request for surgery [id number] Family History Medical History Relation Name Comments [...] patient's age to complete this topic Insurance [facility] Care Teams Dental Ceramist Assistant Relationship Specialty Start Date End Date Becky Pradhan PA [address] [place] [address] [place] [address] PCP - General Physician Outreach Specialist 11/16/21
== END 2025-06-22 08:02 | disposition home or self-care (01) ==
LOC: HO.US 08:01
PROVIDERS: PCP Internal Medicine; Visit Provider Advanced Practice Midwife
DX: Z30.431 Encounter for routine checking of intrauterine contraceptive device (principal); R10.2 Pelvic and perineal pain; N92.6 Irregular menstruation, unspecified; Z87.59 Personal history of other complications of pregnancy, childbirth and the puerperium
CPT/HCPCS: 36415; 76830; 76856; 84702

== ENCOUNTER → 2025-06-22 08:03 | Outpatient (BNV) | payer OTHER, SELFPAY | PROVIDERS: PCP Internal Medicine; Visit Provider Radiology Diagnostic Radiology | DX: Z30.431 Encounter for routine checking of intrauterine contraceptive device (principal); N83.11 Corpus luteum cyst of right ovary; N83.12 Corpus luteum cyst of left ovary | CPT/HCPCS: 76830; 76856 ==

== ENCOUNTER 2025-07-01 10:05 | Outpatient (AMB) | payer OTHER, SELFPAY ==
[2025-07-01 10:23] VITALS: BP 118/74; BMI 39.7
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
== END 2025-07-01 10:57 | disposition home or self-care (01) ==
LOC: HO.HWS 10:05
PROVIDERS: PCP Internal Medicine; Visit Provider Advanced Practice Midwife
DX: N92.6 Irregular menstruation, unspecified (principal); Z30.431 Encounter for routine checking of intrauterine contraceptive device; Z32.02 Encounter for pregnancy test, result negative
CPT/HCPCS: 99213

== ENCOUNTER → 2025-07-01 10:05 | Outpatient (BNVA) | payer OTHER, SELFPAY | PROVIDERS: PCP Internal Medicine; Visit Provider Advanced Practice Midwife | DX: Z71.2 Person consulting for explanation of examination or test findings (principal); Z32.02 Encounter for pregnancy test, result negative; N92.6 Irregular menstruation, unspecified | CPT/HCPCS: 81025; 99212 ==

== ENCOUNTER 2025-09-11 14:04 | Outpatient (AMB) | payer OTHER, SELFPAY ==
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
[2025-09-11 14:16] VITALS: BP 112/70; PULSE 99; TEMP 36.1; O2SAT 97; BMI 39.6
--- OUTSIDE RECORDS SUMMARY | 2025-09-11 15:39 | XMS_ITS | Clinical Summary ---
Author Organization [facility] 's Address [address] [place] [address] Care Team Providers Care Radius Grinder Name Role Phone Becky Pradhan Primary Care [...] so, obtain the minor's consent prior to disclosure.[facility] Allergies No known active allergies Medications [...] (12/06/2021): Added automatically from request for surgery [id number] Family History Medical History Relation Name Comments [...] patient's age to complete this topic Insurance [facility] Care Teams Radius Grinder Relationship Specialty Start Date End Date Becky Pradhan PA [address] [place] [address] [place] [address] PCP - General Physician Contracts Director 11/16/21
== END 2025-09-11 14:37 | disposition home or self-care (01) ==
PROVIDERS: PCP Internal Medicine; Visit Provider Internal Medicine
DX: L30.9 Dermatitis, unspecified (principal)

== ENCOUNTER → 2025-09-11 14:04 | Outpatient (BNVA) | payer OTHER, SELFPAY | PROVIDERS: PCP Internal Medicine; Visit Provider Internal Medicine | DX: L30.9 Dermatitis, unspecified (principal); Z13.31 Encounter for screening for depression; Z13.39 Encounter for screening examination for other mental health and behavioral disorders | CPT/HCPCS: 96127; 99212 ==